=== PATIENT | male | born 1950 | race Caucasian/White ===

== ENCOUNTER 2019-03-12 07:17 | Day surgery (SDC) | payer MEDICARE ==
[2019-03-07 16:04] VITALS: BMI 31.8
--- NOTE | 2019-03-12 05:02 | P.GSHP ---
History of Present Illness H&P Date: 03/12/19 CHIEF COMPLAINT: Colon screen HISTORY OF PRESENT ILLNESS: The patient is a 89-year-old male who presents for colon screen. Lower endoscopy was offered for further evaluation and management. PAST MEDICAL HISTORY: Please see list. PAST SURGICAL HISTORY: Please see list. MEDICATIONS: Please see list. ALLERGIES: Please see list. SOCIAL HISTORY: No illicit drug use FAMILY HISTORY: No reports of Crohn disease or ulcerative colitis. REVIEW OF ORGAN SYSTEMS: CONSTITUTIONAL: No reports of fevers or chills. PHYSICAL EXAM: VITAL SIGNS: Stable GENERAL: Well-developed pleasant in no acute distress. HEENT: No scleral icterus. Extraocular movements grossly intact. Moist buccal mucosa. NECK: Supple without lymphadenopathy. CHEST: Unlabored respirations. Equal bilateral excursions. CARDIOVASCULAR: Regular rate and rhythm. Distal 2+ pulses. ABDOMEN: Soft, nontender, nondistended. MUSCULOSKELETAL: No clubbing, cyanosis, or edema. ASSESSMENT: 1. Colon screen. PLAN: 1. Recommend proceeding with a lower endoscopy Past Medical History Past Medical History: Diabetes Mellitus, Hyperlipidemia, Hypertension, Renal Disease, Thyroid Disorder Additional Past Medical History / Comment(s): hx colon polyps History of Any Multi-Drug Resistant Organisms: None Reported Past Surgical History: Tonsillectomy Additional Past Surgical History / Comment(s): colonoscopy Past Anesthesia/Blood Transfusion Reactions: No Reported Reaction Smoking Status: Never smoker Medications and Allergies Home Medications Medication Instructions Recorded Confirmed Type Levothyroxine Sodium [Synthroid] 75 mcg PO DAILY 09/01/13 03/07/19 History Aspirin 81 mg PO DAILY 11/06/13 03/07/19 History Divalproex ER [Depakote ER] 250 mg PO AC-BRKFST 11/06/13 03/07/19 History Divalproex ER [Depakote ER] 500 mg PO HS 11/06/13 03/07/19 History Simvastatin [Zocor] 40 mg PO HS 11/06/13 03/07/19 History Carvedilol [Coreg] 6.25 mg PO BID 03/07/19 03/07/19 History Cholecalciferol (Vitamin D3) 2,000 unit PO DAILY 03/07/19 03/07/19 History [Vitamin D3] Dialyvite 1 tab PO DAILY 03/07/19 History Ferrous Sulfate [Feosol] 325 mg PO DAILY 03/07/19 03/07/19 History Pioglitazone [Actos] 30 mg PO DAILY 03/07/19 03/07/19 History Torsemide [Demadex] 10 mg PO DAILY 03/07/19 03/07/19 History amLODIPine [Norvasc] 10 mg PO DAILY 03/07/19 03/07/19 History Allergies Allergy/AdvReac Type Severity Reaction Status Date / Time codeine Allergy Unknown Verified 03/07/19 15:59
[~2019-03-12 07:17] MED LIST: LACTATED RINGERS 1,000 ML IV SCH; LIDOCAINE 1% 20 ML VIAL (10MG/ML) FOR IV START INTRADERMA PRN
[2019-03-12] MEDS ORDERED: SODIUM CHLORIDE 0.9% 1,000 ML IV ONE (08:00)
[2019-03-12] MEDS ORDERED: PROPOFOL 10 MG/ML 20 ML VIAL IV ONE (08:03)
[2019-03-12 08:07] VITALS: RESP 16; TEMP 97.3
[2019-03-12 08:07] LABS: Glucose,Whole Blood 155 mg/dL (75-99)
[2019-03-12 08:09] LABS: Basophils # (A) 0.1 k/uL (0-0.2); Basophils % (A) 1 %; Eosinophils # (A) 0.1 k/uL (0-0.7); Eosinophils % (A) 2 %; HCT 43.8 % (39.0-53.0); HGB 14.3 gm/dL (13.0-17.5); Lymphocytes # (A) 2.1 k/uL (1.0-4.8); Lymphocytes % (A) 31 %; MCH 29.1 pg (25.0-35.0); MCHC 32.8 g/dL (31.0-37.0); Mean Platelet Volume 6.7; Monocytes # (A) 0.4 k/uL (0-1.0); Monocytes % (A) 6 %; Neutrophils # (A) 3.9 k/uL (1.3-7.7); Neutrophils % (A) 58 %; Platelet Count 181 k/uL (150-450); RBC 4.92 m/uL (4.30-5.90); RDW 14.7 % (11.5-15.5); WBC 6.7 k/uL (3.8-10.6)
[2019-03-12] MEDS ORDERED: LACTATED RINGERS 950 ML IV ONE (08:17)
[2019-03-12 08:20] LABS: Potassium 4.2 mmol/L (3.5-5.1)
--- NOTE | 2019-03-12 08:20 | P.PCN ---
Date of Procedure: 03/12/19 Description of Procedure: PREOPERATIVE DIAGNOSIS: Personal history of colon polyps Colonoscopy screening, high risk POSTOPERATIVE DIAGNOSIS: Personal history of colon polyps Colonoscopy screening, high risk Sigmoid colon tubular adenoma Sigmoid diverticulosis, moderate OPERATION: Colonoscopy to the ileocecal valve and appendiceal orifice. Colonoscopy with cold forceps biopsy SURGEON: Carmen Doyle MD. ANESTHESIA: MAC. INDICATIONS: The patient is a 68-year-old male who presents for colonoscopy screening. Last colonoscopy 2 years ago with high risk serrated adenoma. Benefits and risks were described and informed consent was obtained. DESCRIPTION OF PROCEDURE: The patient had undergone Suprep. He had been brought into the operating room and laid in the left lateral decubitus position. After adequate intravenous sedation, the rectum was examined with 2% lidocaine jelly. External hemorrhoids were encountered. The rectal tone was within normal limits. No lesions were palpated in the rectal vault. An Olympus colonoscope was advanced until the ileocecal valve and appendiceal orifice were clearly viewed. The prep was excellent. The scope was removed with visualization of each mucosal fold. Moderate sigmoid scattered diverticulosis was encountered with impacted stool. Sigmoid colon adenoma 4 mm was cold forcep biopsy. No evidence of focal colitis was found. Retroflexion of the scope demonstrated grade 1 internal hemorrhoids without active bleeding or inflammation. The colon was desufflated. The patient had tolerated the procedure well. Withdrawal time was over 6 minutes. FINDINGS: Aronchick preparation quality scale 1 (1-5) No internal hemorrhoids No external hemorrhoids No arteriovenous malformations. Moderate sigmoid diverticulosis of the sigmoid colon with impaction Removal of 1 polyp: - Cold forceps biopsy at 20 cm from the anal verge, 4 mm polyp, sigmoid colon No focal colitis. RECOMMENDATIONS: Repeat colonoscopy 3 years, 2021. Plan - Discharge Summary Discharge Rx Participant: No New Discharge Prescriptions: No Action Levothyroxine Sodium [Synthroid] 75 mcg PO DAILY Simvastatin [Zocor] 40 mg PO HS Aspirin 81 mg PO DAILY Divalproex ER [Depakote ER] 250 mg PO AC-BRKFST Divalproex ER [Depakote ER] 500 mg PO HS Ferrous Sulfate [Feosol] 325 mg PO DAILY amLODIPine [Norvasc] 10 mg PO DAILY Pioglitazone [Actos] 30 mg PO DAILY Carvedilol [Coreg] 6.25 mg PO BID Torsemide [Demadex] 10 mg PO DAILY Dialyvite 1 tab PO DAILY Cholecalciferol (Vitamin D3) [Vitamin D3] 2,000 unit PO DAILY Discharge Medication List Levothyroxine Sodium [Synthroid] 75 mcg PO DAILY 09/01/13 [History] Aspirin 81 mg PO DAILY 11/06/13 [History] Divalproex ER [Depakote ER] 250 mg PO AC-BRKFST 11/06/13 [History] Divalproex ER [Depakote ER] 500 mg PO HS 11/06/13 [History] Simvastatin [Zocor] 40 mg PO HS 11/06/13 [History] Carvedilol [Coreg] 6.25 mg PO BID 03/07/19 [History] Cholecalciferol (Vitamin D3) [Vitamin D3] 2,000 unit PO DAILY 03/07/19 [History] Dialyvite 1 tab PO DAILY 03/07/19 [History] Ferrous Sulfate [Feosol] 325 mg PO DAILY 03/07/19 [History] Pioglitazone [Actos] 30 mg PO DAILY 03/07/19 [History] Torsemide [Demadex] 10 mg PO DAILY 03/07/19 [History] amLODIPine [Norvasc] 10 mg PO DAILY 03/07/19 [History] Follow up Appointment(s)/Referral(s): Carmen Doyle MD [STAFF PHYSICIAN] - As Needed Patient Instructions/Handouts: Diverticulosis (ED), Diverticulosis Diet (GEN), Colorectal Polyps (DC) Activity/Diet/Wound Care/Special Instructions: Repeat colonoscopy in 3 years, 2021 Discharge Disposition: HOME SELF-CARE
[2019-03-12 08:45] VITALS: BP 112/70; PULSE 69
== END 2019-03-12 09:10 | disposition home or self-care (01) ==
LOC: ORWHC2ENDO 07:17
PROVIDERS: ATTEND Surgery Plastic and Reconstructive Surgery
DX: K63.5 Polyp of colon (principal); K57.30 Diverticulosis of large intestine without perforation or abscess without bleeding; K64.4 Residual hemorrhoidal skin tags; Z86.010 Personal history of colon polyps; E11.9 Type 2 diabetes mellitus without complications; E78.5 Hyperlipidemia, unspecified; I10 Essential (primary) hypertension; N28.9 Disorder of kidney and ureter, unspecified; E07.9 Disorder of thyroid, unspecified; F31.9 Bipolar disorder, unspecified; Z88.5 Allergy status to narcotic agent; Z90.89 Acquired absence of other organs; Z98.890 Other specified postprocedural states; Z79.890 Hormone replacement therapy; Z79.82 Long term (current) use of aspirin; Z79.899 Other long term (current) drug therapy
CPT/HCPCS: 88305; 80051; 85025; 45380; J2704

== ENCOUNTER 2021-01-05 10:09 | Day surgery (SDC) | payer MEDICARE ==
[2020-12-29 15:17] VITALS: BMI 32.2
[~2021-01-05 10:09] MED LIST changes: +DEXAMETHASONE SOD PHOSPHATE 4 MG/ML 1 ML VIAL IV ONE; +HYDROmorphone 0.5 MG/0.5 ML SYRINGE IVP PRN; +LIDOCAINE 1% (10MG/ML) FOR IV START INTRADERMA PRN; -LIDOCAINE 1% 20 ML VIAL (10MG/ML) FOR IV START INTRADERMA PRN; +MIDAZOLAM 2 MG/2 ML VIAL IV PRN; +ONDANSETRON 4 MG/2 ML VIAL IVP ONE
[2021-01-05 10:39] VITALS: RESP 16
[2021-01-05 10:49] LABS: Glucose,Whole Blood 177 mg/dL (75-99)
[2021-01-05] MEDS ORDERED: MIDAZOLAM 2 MG/2 ML VIAL IVP ONE (11:40)
[2021-01-05] MEDS ORDERED: KETAMINE 10 MG/ML 20 ML VIAL ONE (12:42)
[2021-01-05] MEDS ORDERED: ROPIVACAINE 5 MG/ML 30 ML VIAL ONE (12:42)
[2021-01-05] MEDS ORDERED: ePHEDrine SULFATE/0.9% NACL/PF 50 MG/5 ML SYRINGE IV ONE (12:42)
[2021-01-05] MEDS ORDERED: HEPARIN SODIUM,PORCINE 5,000 UNIT/ML 1 ML VIAL ONE (12:42)
[2021-01-05] MEDS ORDERED: MIDAZOLAM 2 MG/2 ML VIAL ONE (12:42)
[2021-01-05] MEDS ORDERED: PHENYLEPHRINE-0.9% NACL SYG 1,000 MCG/10 ML SYRINGE ONE (12:42)
[2021-01-05] MEDS ORDERED: PROPOFOL 10 MG/ML 20 ML VIAL IV ONE (12:42)
[2021-01-05] MEDS ORDERED: fentaNYL (PF) 50 MCG/ML 2 ML AMP ONE (12:42)
--- NOTE | 2021-01-05 12:46 | P.HPIHPCON ---
History of Present Illness H&P Date: 01/05/21 Mr Person is a 70 year old male with CKD 4 who was recommended to have access creation for possible dialysis. He underwnet vein mapping showing adequate sized left cephalic vein therefore a left radiocephalic av fistula creation was discussed and scheduled. Consent for Procedure: I have explained the operation/procedure to the patient, including the risks, benefits, side effects, alternative therapies (including not receiving the proposed treatment or service), the likelihood of the patient achieving his/her goals, and potential recuperation problems for the procedure/sedation/analgesia, as well as any blood products, if indicated. I also explained to the patient the risks, benefits and side effects of the alternatives, as well as the risks related to not receiving the proposed procedure, care, treatment, or services. Past Medical History Past Medical History: Diabetes Mellitus, Hyperlipidemia, Hypertension, Renal Disease, Thyroid Disorder Additional Past Medical History / Comment(s): hx colon polyps History of Any Multi-Drug Resistant Organisms: None Reported Past Surgical History: Tonsillectomy Additional Past Surgical History / Comment(s): colonoscopy Past Anesthesia/Blood Transfusion Reactions: No Reported Reaction Smoking Status: Never smoker - Past Family History Mother Family Medical History: Cancer Medications and Allergies Home Medications Medication Instructions Recorded Confirmed Type Levothyroxine Sodium [Synthroid] 75 mcg PO DAILY 09/01/13 01/05/21 History Aspirin 81 mg PO DAILY 11/06/13 01/05/21 History Divalproex ER [Depakote ER] 250 mg PO AC-BRKFST 11/06/13 01/05/21 History Divalproex ER [Depakote ER] 500 mg PO 11/06/13 01/05/21 History Simvastatin [Zocor] 40 mg PO 11/06/13 01/05/21 History Cholecalciferol (Vitamin D3) 2,000 unit PO DAILY 03/07/19 01/05/21 History [Vitamin D3] Dialyvite 1 tab PO DAILY 03/07/19 01/05/21 History Ferrous Sulfate [Feosol] 325 mg PO BID 03/07/19 01/05/21 History Pioglitazone [Actos] 30 mg PO DAILY 03/07/19 01/05/21 History Torsemide [Demadex] 10 mg PO DAILY 03/07/19 01/05/21 History amLODIPine [Norvasc] 10 mg PO DAILY 03/07/19 01/05/21 History carvediloL [Coreg] 6.25 mg PO BID 03/07/19 01/05/21 History Allergies Allergy/AdvReac Type Severity Reaction Status Date / Time codeine Allergy Unknown Verified 01/05/21 10:33 Surgical - Exam Vital Signs Temp Pulse Resp BP Pulse Ox 96.9 F L 70 16 137/78 97 01/05/21 10:38 01/05/21 10:38 01/05/21 10:38 01/05/21 10:38 01/05/21 10:38 Gen. is a pleasant cooperative male in no acute distress. HEENT is normocephalic, atraumatic, extraocular motion intact. Heart appears regular. Lungs are clear bilaterally. Abdomen soft, nontender nondistended. Extremity show no clubbing, cyanosis or edema. He has palpable radial pulses bilaterally. Normal mood and affect. Cranial nerves II through XII grossly intact Results - Labs Abnormal Lab Results - Last 24 Hours (Table) 01/05/21 Range/Units 10:44 POC Glucose (mg/dL) 177 H (75-99) mg/dL Assessment and Plan Assessment: Chronic kidney disease Hypertension Diabetes Hyperlipidemia Thyroid disease Plan: Plan for left radiocephalic fistula creation. Questions are answered. Consent was signed. Patient seemingly understands all risks and benefits and is willing to proceed
[2021-01-05] MEDS ORDERED: ceFAZolin 2,000 MG in SODIUM CHLORIDE 0.9% 500 ML IRRIGATION ONE (13:10)
[2021-01-05] MEDS ORDERED: LIDOCAINE 1% INJ 10MG/ML (20 ML MDV) SQ ONE (13:10)
[2021-01-05] MEDS ORDERED: BUPIVACAINE (PF) 0.5% 30 ML VIAL SQ ONE (13:10)
[2021-01-05] MEDS ORDERED: HEPARIN SODIUM,PORCINE 2,000 UNIT in SODIUM CHLORIDE 0.9% 500 ML 500 ML IRRIGATION ONE (13:10)
[2021-01-05] MEDS ORDERED: SODIUM CHLORIDE 0.9% 1,000 ML IV ONE (13:22)
[2021-01-05 14:48] VITALS: TEMP 97
--- NOTE | 2021-01-05 15:18 | P.OP ---
Date of Procedure: 01/05/21 Description of Procedure: Preoperative diagnosis: [Chronic kidney disease] Postoperative diagnosis: Same Procedure: [Creation of left radiocephalic fistula] Surgeon: Angi Hall D.O. EBL: [5 mL] IV fluids: [See records] Urine output: [Not measured] Drains: [None] Complications: [None immediately apparent] Condition: [Stable to recovery] Operative indication and findings: [Patient is a 70-year-old male with chronic kidney disease who was recommended the placement of a permanent access, he had imaging revealing appropriate sized cephalic veins therefore a left radiocephalic fistula was decided upon. Risks and benefits were discussed. He seemingly understood and was willing to proceed. Upon dissection the cephalic vein at the level of the wrist did appear small, approximately 15-18 mm however it did dilate up well.] Procedure in detail: [Patient was taken to the operative suite and placed in supine position. The left upper extremity was prepped and draped in usual sterile fashion. The previously placed block was not functional therefore lidocaine was used and instilled into the area overlying the pulse. Incision was made and carried down to the level of subcutaneous tissues. Blunt dissection was utilized and the artery was identified. It was encircled proximally and distally. Attention was then turned towards the vein, the some cutaneous tissues were dissected. The vein was identified, slightly small in nature. Branches were ligated. The vein was ligated and the distal portion was secured with 4-0 silk tie. The vein was then dilated up to 3.5 and flushed with saline. The patient was heparinized and flow was occluded through the artery. An arteriotomy was made and enlarged with Henao scissors. An anastomosis between the vein and the artery was performed utilizing 7-0 Prolene. Prior to completion of the anastomosis the artery was flushed. The anastomosis was completed and flow was resumed. There was good multiphasic flow proximally and distally as well as the fistula. The area was irrigated. The subcutaneous tissues were reapproximated with interrupted sutures of 3-0 Prolene. The skin was reapproximated with running 4-0 subcuticular Monocryl. The patient was allowed awaken from anesthesia and taken to PACU in stable condition having tolerated the procedure well] Plan - Discharge Summary Discharge Rx Participant: No New Discharge Prescriptions: No Action Levothyroxine Sodium [Synthroid] 75 mcg PO DAILY Simvastatin [Zocor] 40 mg PO HS Aspirin 81 mg PO DAILY Divalproex ER [Depakote ER] 250 mg PO [facility] Divalproex ER [Depakote ER] 500 mg PO HS Ferrous Sulfate [Feosol] 325 mg PO BID amLODIPine [Norvasc] 10 mg PO DAILY Pioglitazone [Actos] 30 mg PO DAILY carvediloL [Coreg] 6.25 mg PO BID Torsemide [Demadex] 10 mg PO DAILY Dialyvite 1 tab PO DAILY Cholecalciferol (Vitamin D3) [Vitamin D3] 2,000 unit PO DAILY Discharge Medication List Levothyroxine Sodium [Synthroid] 75 mcg PO DAILY 09/01/13 [History] Aspirin 81 mg PO DAILY 11/06/13 [History] Divalproex ER [Depakote ER] 250 mg PO -BRKFST 11/06/13 [History] Divalproex ER [Depakote ER] 500 mg PO HS 11/06/13 [History] Simvastatin [Zocor] 40 mg PO HS 11/06/13 [History] Cholecalciferol (Vitamin D3) [Vitamin D3] 2,000 unit PO DAILY 03/07/19 [History] Dialyvite 1 tab PO DAILY 03/07/19 [History] Ferrous Sulfate [Feosol] 325 mg PO BID 03/07/19 [History] Pioglitazone [Actos] 30 mg PO DAILY 03/07/19 [History] Torsemide [Demadex] 10 mg PO DAILY 03/07/19 [History] amLODIPine [Norvasc] 10 mg PO DAILY 03/07/19 [History] carvediloL [Coreg] 6.25 mg PO BID 03/07/19 [History] Follow up Appointment(s)/Referral(s): Angi Hall DO [STAFF PHYSICIAN] - 2 Weeks Activity/Diet/Wound Care/Special Instructions: May shower starting tomorrow. No heavy lifting for 2 weeks. May resume all home medications including any anticoagulation or antiplatelet medications starting tomorrow. Discharge Disposition: HOME SELF-CARE
[2021-01-05 15:55] VITALS: BP 131/86; PULSE 69
--- NOTE | 2021-01-07 07:20 | P.ANPRN ---
Procedure Note - Anesthesia - Nerve Block Performed Left Supraclavicular Single Time Out Performed: Yes Date of Procedure: 01/05/21 Procedure Start Time: 11:39 Procedure Stop Time: 11:44 Location of Patient: PreOp Indication: Acute Post-Operative Pain, Requested by Surgeon Sedation Type: Sedate with meaningful contact maintained Preparation: Sterile Prep Position: Supine Needle Types: Pajunk Needle Gauge: 21 Ultrasound used to visualize needle placement: Yes Ultrasound used to observe medication spread: Yes Blood Aspirated: No Pain Paresthesia on Injection Noted: No Resistance on Injection: Normal Image Stored and Saved: Yes Events: Uneventful and Well Tolerated (ropi .5% 20cc)
== END 2021-01-05 16:11 | disposition home or self-care (01) ==
LOC: OR 10:09
PROVIDERS: ATTEND Surgery
DX: I12.9 Hypertensive chronic kidney disease with stage 1 through stage 4 chronic kidney disease, or unspecified chronic kidney disease (principal); N18.9 Chronic kidney disease, unspecified; E11.22 Type 2 diabetes mellitus with diabetic chronic kidney disease; F31.9 Bipolar disorder, unspecified; Z79.82 Long term (current) use of aspirin; Z79.899 Other long term (current) drug therapy; E78.5 Hyperlipidemia, unspecified; N40.0 Benign prostatic hyperplasia without lower urinary tract symptoms; E11.21 Type 2 diabetes mellitus with diabetic nephropathy; F41.0 Panic disorder [episodic paroxysmal anxiety]; E55.9 Vitamin D deficiency, unspecified; Z88.5 Allergy status to narcotic agent
CPT/HCPCS: 64415; 76942; 36821; J2250; J1644; J0690 ×2; J2405; J2001; J3010; J2795; J2370; J2704